=== PATIENT | male | born 1980 | race Two or more races ===

== ENCOUNTER 2022-01-26 08:25 | Outpatient (CLI) | payer MEDICARE, BC ==
[2022-01-26] MEDS ORDERED: UREA 10% -AHA 4% CREAM 57 GM TUBE ONE (09:34)
== END 2022-01-26 23:59 | disposition home or self-care (01) ==
LOC: WOU 08:25
PROVIDERS: ATTEND Surgery
DX: S81.802D Unspecified open wound, left lower leg, subsequent encounter (principal); X58.XXXD Exposure to other specified factors, subsequent encounter; L89.626 Pressure-induced deep tissue damage of left heel; G82.20 Paraplegia, unspecified; R60.0 Localized edema; Z99.3 Dependence on wheelchair
CPT/HCPCS: G0463

== ENCOUNTER 2022-02-09 08:30 | Outpatient (CLI) | payer MEDICARE, BC | END 2022-02-09 23:59 | disposition home or self-care (01) | LOC: WOU 08:30 | PROVIDERS: ATTEND Surgery | DX: S81.802D Unspecified open wound, left lower leg, subsequent encounter (principal); X58.XXXD Exposure to other specified factors, subsequent encounter; L89.626 Pressure-induced deep tissue damage of left heel; L89.616 Pressure-induced deep tissue damage of right heel; R60.0 Localized edema | CPT/HCPCS: G0463 ==

== ENCOUNTER 2022-02-23 08:34 | Outpatient (CLI) | payer MEDICARE, BC ==
[2022-02-23] MEDS ORDERED: UREA 10% -AHA 4% CREAM 57 GM TUBE ONE (08:59)
[2022-02-23] MEDS ORDERED: DAKINS HALF STRENGTH (0.25%) 480 ML BOTTLE ONE (09:12)
== END 2022-02-23 23:59 | disposition home health service (06) ==
LOC: WOU 08:34
PROVIDERS: ATTEND Surgery
DX: T81.89XA Other complications of procedures, not elsewhere classified, initial encounter (principal); L97.823 Non-pressure chronic ulcer of other part of left lower leg with necrosis of muscle; L89.623 Pressure ulcer of left heel, stage 3; L89.616 Pressure-induced deep tissue damage of right heel; R60.0 Localized edema
CPT/HCPCS: 11043

== ENCOUNTER 2022-03-09 08:40 | Outpatient (CLI) | payer MEDICARE, BC ==
[2022-03-09] MEDS ORDERED: BACI/NEOM/POLY B OINT PKT 1 UDPKT PACKET ONE (09:07)
== END 2022-03-09 23:59 | disposition home health service (06) ==
LOC: WOU 08:40
PROVIDERS: ATTEND Surgery
DX: T81.89XA Other complications of procedures, not elsewhere classified, initial encounter (principal); L97.823 Non-pressure chronic ulcer of other part of left lower leg with necrosis of muscle; L89.623 Pressure ulcer of left heel, stage 3; G82.20 Paraplegia, unspecified
CPT/HCPCS: 11043

== ENCOUNTER 2022-03-30 08:35 | Outpatient (CLI) | payer MEDICARE, BC ==
[2022-03-30] MEDS ORDERED: BACI/NEOM/POLY B OINT PKT 1 UDPKT PACKET ONE (09:23)
== END 2022-03-30 23:59 | disposition home health service (06) ==
LOC: WOU 08:35
PROVIDERS: ATTEND Surgery
DX: T81.89XA Other complications of procedures, not elsewhere classified, initial encounter (principal); L89.623 Pressure ulcer of left heel, stage 3; L97.823 Non-pressure chronic ulcer of other part of left lower leg with necrosis of muscle
CPT/HCPCS: C5271; Q4117 ×2

== ENCOUNTER 2022-04-13 08:45 | Outpatient (CLI) | payer MEDICARE, BC ==
[2022-04-13] MEDS ORDERED: UREA 10% -AHA 4% CREAM 57 GM TUBE ONE (09:12)
[2022-04-13] MEDS ORDERED: BACI/NEOM/POLY B OINT PKT 1 UDPKT PACKET ONE (09:33)
== END 2022-04-13 23:59 | disposition home health service (06) ==
LOC: WOU 08:45
PROVIDERS: ATTEND Surgery
DX: T81.89XA Other complications of procedures, not elsewhere classified, initial encounter (principal); L89.623 Pressure ulcer of left heel, stage 3; G82.20 Paraplegia, unspecified; L97.512 Non-pressure chronic ulcer of other part of right foot with fat layer exposed
CPT/HCPCS: 15271; Q4103 ×2; Q4102

== ENCOUNTER 2022-05-04 08:54 | Outpatient (CLI) | payer MEDICARE, BC ==
[2022-05-04] MEDS ORDERED: BACI/NEOM/POLY B OINT PKT 1 UDPKT PACKET ONE (09:24)
== END 2022-05-04 23:59 | disposition home health service (06) ==
LOC: WOU 08:54
PROVIDERS: ATTEND Surgery
DX: T81.89XA Other complications of procedures, not elsewhere classified, initial encounter (principal); L97.518 Non-pressure chronic ulcer of other part of right foot with other specified severity; G82.20 Paraplegia, unspecified; Z99.3 Dependence on wheelchair
CPT/HCPCS: 11043

== ENCOUNTER 2022-05-18 08:48 | Outpatient (CLI) | payer MEDICARE, BC ==
[2022-05-18] MEDS ORDERED: BACI/NEOM/POLY B OINT PKT 1 UDPKT PACKET ONE (09:31)
== END 2022-05-18 23:59 | disposition home health service (06) ==
LOC: WOU 08:48
PROVIDERS: ATTEND Surgery
DX: T81.89XA Other complications of procedures, not elsewhere classified, initial encounter (principal); L97.518 Non-pressure chronic ulcer of other part of right foot with other specified severity; L03.116 Cellulitis of left lower limb; G82.20 Paraplegia, unspecified
CPT/HCPCS: 11043

== ENCOUNTER 2022-06-01 08:37 | Outpatient (CLI) | payer MEDICARE, BC | END 2022-06-01 23:59 | disposition home health service (06) | LOC: WOU 08:37 | PROVIDERS: ATTEND Surgery | DX: T81.89XA Other complications of procedures, not elsewhere classified, initial encounter (principal); L03.116 Cellulitis of left lower limb; L97.518 Non-pressure chronic ulcer of other part of right foot with other specified severity; G82.20 Paraplegia, unspecified | CPT/HCPCS: 11043 ==

== ENCOUNTER 2022-06-15 08:45 | Outpatient (CLI) | payer MEDICARE, BC | END 2022-06-15 23:59 | disposition home health service (06) | LOC: WOU 08:45 | PROVIDERS: ATTEND Surgery | DX: S81.802A Unspecified open wound, left lower leg, initial encounter (principal); T81.89XA Other complications of procedures, not elsewhere classified, initial encounter; X58.XXXA Exposure to other specified factors, initial encounter; L97.518 Non-pressure chronic ulcer of other part of right foot with other specified severity; L03.116 Cellulitis of left lower limb; B96.1 Klebsiella pneumoniae [K. pneumoniae] as the cause of diseases classified elsewhere; G82.20 Paraplegia, unspecified | CPT/HCPCS: 11043 ==

== ENCOUNTER 2022-08-10 09:13 | Outpatient (CLI) | payer MEDICARE, BC | END 2022-08-10 23:59 | disposition home health service (06) | LOC: WOU 09:13 | PROVIDERS: ATTEND Surgery | DX: L97.518 Non-pressure chronic ulcer of other part of right foot with other specified severity (principal); G82.20 Paraplegia, unspecified | CPT/HCPCS: G0463 ==

== ENCOUNTER 2022-08-24 08:42 | Outpatient (CLI) | payer MEDICARE, BC | END 2022-08-24 23:59 | disposition home health service (06) | LOC: WOU 08:42 | PROVIDERS: ATTEND Surgery | DX: T81.89XD Other complications of procedures, not elsewhere classified, subsequent encounter (principal); G82.20 Paraplegia, unspecified | CPT/HCPCS: G0463; A6454 ==

== ENCOUNTER 2022-09-07 08:28 | Outpatient (CLI) | payer MEDICARE, BC | END 2022-09-07 23:59 | disposition home health service (06) | LOC: WOU 08:28 | PROVIDERS: ATTEND Surgery | DX: T81.89XD Other complications of procedures, not elsewhere classified, subsequent encounter (principal); L89.626 Pressure-induced deep tissue damage of left heel; G82.20 Paraplegia, unspecified | CPT/HCPCS: G0463 ==

== ENCOUNTER 2023-01-11 09:02 | Outpatient (CLI) | payer MEDICARE, BC | END 2023-01-11 23:59 | disposition home health service (06) | LOC: WOU 09:02 | PROVIDERS: ATTEND Surgery | DX: L89.623 Pressure ulcer of left heel, stage 3 (principal); T81.89XD Other complications of procedures, not elsewhere classified, subsequent encounter; B49 Unspecified mycosis; G82.20 Paraplegia, unspecified | CPT/HCPCS: G0463 ==